=== PATIENT | male | born 1980 | race Caucasian/White ===

== ENCOUNTER 2020-04-04 14:54 | Outpatient (CLI) | payer OTHER, SELFPAY ==
--- NOTE | ~2020-04-04 | XR_ITS ---
EXAMINATION: XR chest 2V DATE: 04/04/2020 15:24 INDICATION: Cough. TECHNIQUE: Frontal and lateral views of the chest were obtained. COMPARISON: Chest single view 01/30/2009 FINDINGS: The chest demonstrates clear lungs without pneumonia, pleural effusion, or pneumothorax. Th e heart size is normal. IMPRESSION: 1. No acute cardiopulmonary disease. Reviewed, dictated and finalized at location A.
== END 2020-04-04 14:55 | disposition home or self-care (01) ==
PROVIDERS: PCP Family Medicine; Visit Provider Family Medicine
DX: R05 Cough (principal)
CPT/HCPCS: 71046

== ENCOUNTER → 2022-02-13 10:14 | Outpatient (CLI) | payer OTHER, SELFPAY ==
--- NOTE | ~2022-02-13 | XR_ITS ---
EXAMINATION: XR barium swallow DATE: 02/13/2022 11:04 INDICATION: Dysphagia, unspecified TECHNIQUE: The patient drank thick barium and gas producing crystals. Fluoroscopy of the hypopharynx and esophagus was performed. Fluoroscopy exposure time was 0.9 minutes. The DAP for this procedure wa s 3.792 Gycm2. COMPARISON: None. FINDINGS: There is no mass or stricture of the esophagus. Esophageal motility is normal. There is no hiatal hernia. There was no gastroesophageal reflux with provocative maneuvers. IMPRESSION: 1. Unremarkable esophagram. Reviewed, dictated and finalized at location B. IMPRESSION: 1. Unremarkable esophagram.
== END ==
PROVIDERS: Visit Provider Otolaryngology
DX: R13.10 Dysphagia, unspecified (principal)
CPT/HCPCS: 74220

== ENCOUNTER 2022-10-07 00:45 | Day surgery (SDC) | payer OTHER, SELFPAY ==
[2022-09-26 14:47] VITALS: BMI 34.1
[2022-10-07 09:41] VITALS: BP 165/91; PULSE 86; RESP 16; TEMP 35.9; O2SAT 99; BMI 35.8
[2022-10-07] MEDS: LACTATED RINGERS 1,000 ML 150 ML IV CONT (09:49)
--- NOTE | 2022-10-07 10:18 | PM.HPGS ---
History of Present Illness History of Present Illness Consent: Risks, benefits, and alternatives have been discussed and questions answered. Patient agrees to proceed with procedure. Chief complaint: Globus phenomenon Narrative: Sebastián Mendoza is a 42 year old male with globus sensation seeing by ent, never had egd Review of Systems Constitutional: Constitutional: Denies headache(s) and Denies weakness Eyes: Eyes: Denies blurry vision ENT: Reports Normal hearing present, Denies headache(s) and Denies neck pain Cardiovascular: Cardiovascular: Denies chest pain and Denies dyspnea Respiratory: Respiratory: Denies dyspnea Gastrointestinal: Gastrointestinal: Reports no additional gastrointestinal complaints Genitourinary: Genitourinary: Denies dysuria Musculoskeletal: Musculoskeletal: Denies neck pain Integumentary/Breasts: Skin/Breast: Denies dry skin Neurologic: Reports Normal hearing present, Denies headache(s) and Denies weakness Psychiatric: Psychiatric: Denies anxiety Endocrine: Endocrine: Denies change in body appearance Hematologic/Lymphatic: Hematologic/Lymphatic: Denies easy bleeding Allergic/Immunologic: Allergic/Immunologic: Denies urticaria PMFSH Past Medical History Medical History Elevated blood-pressure reading, without diagnosis of hypertension Metabolic syndrome Mixed hyperlipidemia Other obesity due to excess calories Prediabetes Family History Family History Mother Hypertension Family history of elevated blood lipids Grandparent Family history of cardiovascular disease Family history of coronary artery disease Father Family history of coronary artery disease Alcoholism Social History Social History Smoking status: Former smoker Tobacco type: cigarettes and cigars Alcohol intake: current Drinks per week: 12 Substance use: never Substance use type: does not use Living arrangements: with family Spiritual care concerns: No Meds Home Medications and Allergies Home Medications Medication Instructions Recorded Confirmed Type multivitamin with minerals-folic 1 tablet PO DAILY 09/26/22 10/07/22 History acid 0.4 mg tablet omega-3 fatty acids-vitamin E 1 cap PO DAILY 09/26/22 10/07/22 History 1,000 mg capsule atorvastatin 20 mg tablet 20 mg PO QHS #30 tabs 10/01/22 10/07/22 Rx fenofibrate micronized 134 mg 134 mg PO DAILY #90 caps 10/02/22 10/07/22 Rx capsule Allergies Allergy/AdvReac Type Severity Reaction Status Date / Time No Known Allergies Allergy Mild Verified 10/07/22 09:39 Vital Signs Vital Signs - 24 hr 10/07/22 09:41 Temperature 96.7 F L Pulse Rate 86 Respiratory Rate 16 Blood Pressure 165/91 H Pulse Oximetry 99 Oxygen Delivery Room Air Exam Const: General: comfortable and no acute distress HENMT: Face/Nose/Sinus: Normal nares present Eyes: General: appearance normal, both eyes and all related structures Neck: Neck: no JVD Resp: Auscultation: clear to auscultation bilaterally Cardio: Rate: regular rate Rhythm: regular rhythm GI: Inspection: non-distended GI Palp: Yes Soft to palpation Skin: General skin exam: normal color Neuro: General: gait normal Speech: normal speech Extrem: General: normal to inspection Psych: Mental Status: mental status grossly normal Assessment and Plan Assessment and plan (1) Globus pharyngeus: Code(s): R09.89 - Other specified symptoms and signs involving the circulatory and respiratory systems Status: Acute Assessment and Plan: egd
[2022-10-07 10:33] VITALS: BP 142/84; PULSE 81; RESP 22; O2SAT 99
--- NOTE | 2022-10-07 10:39 | P.PNAN_ITS ---
Anes - Initial Pre Proc Eval Procedure: Operation Date: 10/07/22 11:00 Proposed Procedures p Esophagogastroduodenoscopy EGD - Gasper Parker MD Date/Time: 10/07/22 10:39 Surgeon: Gasper Parker MD Pre Op Diagnosis: Globus phenomenon Patient Data Age: 42 Gender: M Height: 1.65 m Weight: 97.7 kg Last Vital Signs Temp 96.7 F L 10/07/22 09:41 Pulse 86 10/07/22 09:41 Resp 16 10/07/22 09:41 BP 165/91 H 10/07/22 09:41 Pulse Ox 99 10/07/22 09:41 O2 Del Method Room Air 10/07/22 09:41 Allergies Allergy/AdvReac Type Severity Reaction Status Date / Time No Known Allergies Allergy Mild Verified 10/07/22 09:39 Home Medications Medication Instructions Recorded Confirmed Type multivitamin with minerals-folic 1 tablet PO DAILY 09/26/22 10/07/22 History acid 0.4 mg tablet omega-3 fatty acids-vitamin E 1 cap PO DAILY 09/26/22 10/07/22 History 1,000 mg capsule atorvastatin 20 mg tablet 20 mg PO QHS #30 tabs 10/01/22 10/07/22 Rx fenofibrate micronized 134 mg 134 mg PO DAILY #90 caps 10/02/22 10/07/22 Rx capsule Patient hx anesthesia problems: none Family hx anesthesia problems: none Results Review: All pre-operative results and documents have been reviewed as part of the pre- operative evaluation. [facility] Past Medical History Medical History Elevated blood-pressure reading, without diagnosis of hypertension Metabolic syndrome Mixed hyperlipidemia Other obesity due to excess calories Prediabetes Family History Family History Mother Hypertension Family history of elevated blood lipids Grandparent Family history of cardiovascular disease Family history of coronary artery disease Father Family history of coronary artery disease Alcoholism Social History Social History Smoking status: Former smoker Tobacco type: cigarettes and cigars Alcohol intake: current Drinks per week: 12 Substance use: never Substance use type: does not use Living arrangements: with family Spiritual care concerns: No Anes - Eval Final PreProcedure Day of Procedure 10/07/22 10:39 Patient weight: normal Heart: regular rate and rhythm Lungs: clear to auscultation Airway: Mallampati scale class II Neurological: alert and oriented Last oral intake: >/= 8 hours ASA classification: II Emergent: no Anesthetic plan: proceed Anesthesia type and monitoring: general GIVS and standard monitoring Results Review: All pre-operative results and documents have been reviewed as part of the pre-operative evaluation. Informed Consent: The patient's anesthetic plan and its attendant risks and benefits were discussed with the patient/family/POA. Questions were solicited and answers provided to the satisfaction of the patient/family/POA.
[2022-10-07 10:43] VITALS: BP 118/74; PULSE 74; RESP 20; O2SAT 98
[2022-10-07 10:53] VITALS: BP 129/82; PULSE 74; RESP 20; O2SAT 96
== END 2022-10-07 11:06 | disposition home or self-care (01) ==
PROVIDERS: PCP Family Medicine; Visit Provider Internal Medicine Gastroenterology
PROC: 0DJ08ZZ Inspection of Upper Intestinal Tract, Via Natural or Artificial Opening Endoscopic (ICD-10-PCS; CPT 43235; principal; 2022-10-07 11:00)
DX: R13.10 Dysphagia, unspecified (principal); E78.2 Mixed hyperlipidemia; R73.03 Prediabetes; E66.9 Obesity, unspecified; Z68.35 Body mass index [BMI] 35.0-35.9, adult
CPT/HCPCS: 43239; 88305; 88312; J2704; J7120

== ENCOUNTER → 2023-05-05 14:31 | Outpatient (CLI) | payer OTHER, SELFPAY ==
--- NOTE | ~2023-05-05 | CT_ITS ---
EXAMINATION: CT soft tissue neck w con DATE: 05/05/2023 14:55 INDICATION: Lump on right posterior pharynx. TECHNIQUE: Computed tomography (CT) of the neck was performed with 75 mL Omnipaque-350 intravenous co ntrast. Automated exposure control and iterative reconstruction technique were employed. The dose-starr gth product was 401.65 mGy-cm. COMPARISON: None FINDINGS: There are no pathologically enlarged lymph nodes. The cervical carotid arteries are normal. The pharynx and larynx are unremarkable. The paranasal sinuses are clear. The mastoid air cells are normal. There is mild cervical spondylosis. IMPRESSION: 1. No abnormal mass identified. Reviewed, dictated and finalized at location A.
== END ==
PROVIDERS: PCP Otolaryngology; Visit Provider Otolaryngology
DX: R13.10 Dysphagia, unspecified (principal)
CPT/HCPCS: 70491; Q9967

== ENCOUNTER 2023-12-23 15:18 | Outpatient (CLI) | payer OTHER, SELFPAY ==
[2023-12-23 16:36] LABS: Alanine Aminotransferase 100 U/L (6-50); Albumin Level 4.4 g/dL (3.5-5.1); Alkaline Phosphatase 49 U/L (38-126); Anion Gap 9 mmol/L (8-16); Aspartate Amino Transferase 83 U/L (17-59); Bilirubin,Total 0.6 mg/dL (0.2-1.3); Blood Urea Nitrogen 21 mg/dL (9-20); Calcium 9.6 mg/dL (8.4-10.2); Carbon Dioxide 29 mmol/L (22-30); Chloride 102 mmol/L (98-107); Estimated Glomerular Filt Rate > 60; Glucose 121 mg/dL (65-110); Potassium 4.2 mmol/L (3.4-5.0); Sodium 140 mmol/L (137-145)
== END 2023-12-23 15:19 | disposition home or self-care (01) ==
LOC: ANHGOSHLAB 15:20
PROVIDERS: PCP Family Medicine; Visit Provider Family Medicine
DX: E88.810 Metabolic syndrome (principal); R74.8 Abnormal levels of other serum enzymes; E66.9 Obesity, unspecified
CPT/HCPCS: 36415; 80053